=== PATIENT | male | born 1995 | race African-American/Black ===

== ENCOUNTER 2021-02-22 14:42 | Emergency (ER) | payer OTHER ==
[~2021-02-22] VITALS: Ht 175.3 cm; Wt 65.8 kg
[2021-02-22] MEDS ORDERED: NOHOMEMEDICATIONS (14:55)
[2021-02-22 15:37] VITALS: BP 127/52
== END 2021-02-22 15:37 | disposition home or self-care (01) ==
LOC: M.ERS 14:42
DX: R05.9 Cough, unspecified (principal); R04.2 Hemoptysis; J45.909 Unspecified asthma, uncomplicated; F17.210 Nicotine dependence, cigarettes, uncomplicated

== ENCOUNTER 2021-03-04 15:35 | Emergency (ER) | payer OTHER ==
[~2021-03-04] VITALS: Ht 175.3 cm; Wt 65.8 kg
[~2021-03-04 15:35] MED LIST: NOHOMEMEDICATIONS
[2021-03-04] MEDS ORDERED: PROAIR HFA8.5 GM INH (15:49)
[2021-03-04] MEDS ORDERED: ALBUTEROL2.5 MG/31 INH (17:30)
[2021-03-04] MEDS ORDERED: VENTOLIN HFA 1818 GM INH (17:30)
[2021-03-04] MEDS ORDERED: MEDROLDOSEPACK PO (17:30)
[2021-03-04 17:37] VITALS: BP 140/60
--- NOTE | 2021-03-05 14:34 | EKG ---
[place] [address] ELECTROCARDIOGRAM REPORT Name: JLUIS NANCEELL Ritu Room: [facility]#: [id number] Admission: 03/04/21 Attend Phys: Discharge: 03/04/21 Date of : [birth year] Date of Service: 03/04/21 1548 Report #: [id number] THIS REPORT FOR: //name// [facility] Test Date: 2021-03-04 Test Time: 15:48:29 Pat Name: GATO NANCE Department: Room: Gender: Bone Char Puller: : 1995 Requested By: Grace Knowles Order Number: [id number] MD: Dillon Cochran Measurements Intervals [place] Rate: 69 P: 67 HI: 120 QRS: 85 QRSD: 108 T: 17 QT: 396 QTc: 425 Interpretive Statements Sinus arrhythmia Ventricular premature complex left ventricular hypertrophy, possible Anterior ST elevation, probably due to LVH versus early repolarization Baseline wander in lead(s) III,aVL No previous ECG available for comparison Electronically Signed On 03-05-2021 14:34:13 MEDICAL IMAGING TECH by Dillon Cochran [email or web address] <ELECTRONICALLY SIGNED> By: Dillon Cochran MD, FACC 03/05/21 1434 1548 1548 Dillon Cochran MD, FAC /EPI
== END 2021-03-04 17:37 | disposition home or self-care (01) ==
LOC: M.ERS 15:35
DX: B34.9 Viral infection, unspecified (principal); Z20.822 Contact with and (suspected) exposure to COVID-19; F17.210 Nicotine dependence, cigarettes, uncomplicated; Z79.899 Other long term (current) drug therapy

== ENCOUNTER 2021-05-13 17:11 | Emergency (ER) | payer OTHER ==
[~2021-05-13] VITALS: Ht 175.3 cm; Wt 65.8 kg
[~2021-05-13 17:11] MED LIST changes: +ALBUTEROL2.5 MG/31 INH; +MEDROLDOSEPACK PO; +PROAIR HFA8.5 GM INH; +VENTOLIN HFA 1818 GM INH
[2021-05-13] MEDS ORDERED: APAP W/CODEINE1 TA2 PO (18:42)
[2021-05-13 18:50] VITALS: BP 138/87
== END 2021-05-13 18:50 | disposition home or self-care (01) ==
LOC: M.ERS 17:11
DX: J06.9 Acute upper respiratory infection, unspecified (principal); J45.909 Unspecified asthma, uncomplicated; Z79.899 Other long term (current) drug therapy